=== PATIENT | female | born 1955 | race Caucasian/White ===

== ENCOUNTER 2017-10-15 17:48 | Emergency (ER) | payer MEDICAID ==
[~2017-10-15] VITALS: Ht 167.6 cm; Wt 95.3 kg
[~2017-10-15 17:48] MED LIST: SITA100T PO; VALS160T2 PO
--- NOTE | 2017-10-15 19:02 | NUR ---
RECEIVED REPORT FROM CHAR MCKEON.
--- NOTE | 2017-10-15 19:03 | NUR ---
PT IN RADIOLOGY AT THIS TIME.
--- NOTE | 2017-10-15 19:05 | NUR ---
PT RETURNED FROM RADIOLOGY
[2017-10-15 19:10] VITALS: BP 152/93
== END 2017-10-15 19:51 | disposition home or self-care (01) ==
LOC: ER 17:50
DX: M54.6 Pain in thoracic spine (principal); I10 Essential (primary) hypertension; E11.9 Type 2 diabetes mellitus without complications; V49.49XA Driver injured in collision with other motor vehicles in traffic accident, initial encounter; Y93.89 Activity, other specified; Y92.413 State road as the place of occurrence of the external cause; Y99.8 Other external cause status
CPT/HCPCS: 72074; 72170; 99284; A4606; Z7610

== ENCOUNTER 2018-02-07 22:07 | Emergency (ER) | payer MEDICAID ==
--- NOTE | 2018-02-07 23:05 | NUR ---
CALLED PT NAME X 3. NO ONE IN WAITING ROOM. PER ADMITTING, PT LEFT.
== END 2018-02-07 23:05 | disposition left against medical advice (07) ==
LOC: ER 22:10
DX: Z53.21 Procedure and treatment not carried out due to patient leaving prior to being seen by health care provider (principal)

== ENCOUNTER 2025-03-08 16:59 | Emergency (ER) | payer MEDICARE, OTHER ==
[~2025-03-08] VITALS: Ht 167.6 cm; Wt 99.8 kg
[2025-03-08] MEDS: IV NS 0.9% 1,000 ML BAG IV ONE (17:42)
[2025-03-08 18:06] LABS: PLATELET COUNT (AUTO) 311 K/uL (150-450); RED BLOOD CELL COUNT(AUTO) 4.70 MIL/uL (4.0-5.2); RED CELL DISTRIBUTION WIDTH 13.4 % (11.5-15.0); WHITE BLOOD COUNT (AUTO) 8.4 K/uL (4.3-11.0)
[2025-03-08 18:19] LABS: CALCIUM, SERUM 9.2 mg/dL (8.5-10.1); CREATININE 0.7 mg/dL (0.6-1.3); SODIUM SERUM 137.0 mmol/L (136-145); UREA NITROGEN, BLOOD 14.0 mg/dL (7-18)
[2025-03-08 18:22] LABS: INR 0.97 (0.91-1.10)
[2025-03-08 18:23] LABS: ASPARTATE AMINOTRANSFERASE 16.0 U/L (15-37); TOTAL PROTEIN, SERUM 7.6 g/dL (6.4-8.2)
[2025-03-08 18:27] LABS: LACTIC ACID 1.6 mmol/L (0.4-2.0)
[2025-03-08 18:39] LABS: APPEARANCE,URINE CLEAR (CLEAR); BLOOD, URINE 1+ Ery/uL (NEGATIVE); LEUKOCYTE ESTERASE ,URINE 2+ (NEGATIVE); NITRITE, URINE NEGATIVE (NEGATIVE); UGLUCOSE NEGATIVE (NEGATIVE)
[2025-03-08 18:56] LABS: ADD URINE CULTURE YES; SQUAMOUS EPITHELIAL CELL,UR 0-2 /HPF (None Seen)
[2025-03-08] MEDS ORDERED: IBUP-1490 PO (19:12)
[2025-03-08 19:27] VITALS: BP 140/88; TEMP 98.6; O2SAT 97
== END 2025-03-08 19:27 | disposition home or self-care (01) ==
LOC: ER 17:24
DX: U07.1 COVID-19 (principal); J06.9 Acute upper respiratory infection, unspecified; I10 Essential (primary) hypertension; E11.9 Type 2 diabetes mellitus without complications; Z79.84 Long term (current) use of oral hypoglycemic drugs; Z79.899 Other long term (current) drug therapy; Z86.2 Personal history of diseases of the blood and blood-forming organs and certain disorders involving the immune mechanism
CPT/HCPCS: 99285; 96360; 70450; 71045; 96361; 87426; 93005; 84145; 85025; 80048; 87040 ×2; 87086; 87804; 83605; 80076; 81001; 36415; 85730; J7030